=== PATIENT | female | born 1980 | race Caucasian/White ===

== ENCOUNTER 2021-11-16 14:33 | Inpatient (IN) | payer OTHER ==
--- NOTE | 2021-11-16 14:53 | ED ---
General Adult HPI - General Chief complaint: Alcohol Stated complaint: ETOH Time Seen by Provider: 11/16/21 14:42 Source: patient, EMS, RN notes reviewed Mode of arrival: EMS Limitations: no limitations - History of Present Illness Initial comments: Patient is a pleasantly intoxicated 41-year-old female presenting to the emergency department intoxication. Patient was supposed to check in the second heart today. Patient admits to drinking around a fifth of alcohol prior to that because she was nervous. Normally she states she only drinks around a pint a day. Patient denies any other drug use. No new physical complaints. No suicidal thoughts. alcohol level was 400 prior to arrival. - Related Data Allergies Allergy/AdvReac Type Severity Reaction Status Date / Time No Known Allergies Allergy Verified 11/16/21 14:45 Review of Systems ROS Statement: Those systems with pertinent positive or pertinent negative responses have been documented in the HPI. ROS Other: All systems not noted in ROS Statement are negative. Constitutional: Denies: fever ENT: Denies: ear pain Respiratory: Denies: cough Cardiovascular: Denies: chest pain Endocrine: Denies: fatigue Gastrointestinal: Denies: abdominal pain Genitourinary: Denies: urgency Musculoskeletal: Denies: back pain Skin: Denies: rash Neurological: Denies: weakness Past Medical History Past Medical History: No Reported History History of Any Multi-Drug Resistant Organisms: None Reported Additional Past Surgical History / Comment(s): Eptopic in 2008 Past Psychological History: Bipolar, Depression Smoking Status: Current every day smoker Past Alcohol Use History: Abuse, Daily, Heavy General Exam Limitations: no limitations General appearance: alert, in no apparent distress, appears intoxicated Head exam: Present: normocephalic Eye exam: Present: normal appearance Neck exam: Present: normal inspection Respiratory exam: Present: normal lung sounds bilaterally Cardiovascular Exam: Present: regular rate, normal rhythm GI/Abdominal exam: Present: soft. Absent: tenderness Extremities exam: Present: normal inspection Neurological exam: Present: alert Psychiatric exam: Present: normal affect, normal mood Skin exam: Present: normal color Course Vital Signs 11/16/21 14:34 Temperature 98.2 F Pulse Rate 87 Respiratory 18 Rate Blood Pressure 133/78 O2 Sat by Pulse 99 Oximetry Medical Decision Making - Medical Decision Making Case discussed with Dr. Dong who will admit for alcohol intoxication for city call. Breath alcohol level 380 Disposition Clinical Impression: Alcoholic intoxication Disposition: ADMITTED IP TO THIS HOSP Is patient prescribed a controlled substance at d/c from ED?: No Referrals: None,Stated [Primary Care Provider] - 1-2 days Time of Disposition: 15:32
[2021-11-16] MEDS ORDERED: SODIUM CHLORIDE 0.9% 1,000 ML IV STA (15:15)
[2021-11-16] MEDS ORDERED: MULTIVITAMINS, THERA 1 EACH TAB PO STA (15:15)
[2021-11-16] MEDS ORDERED: FOLIC ACID 1 MG TAB PO STA (15:15)
[2021-11-16] MEDS ORDERED: THIAMINE 100 MG/ML 2 ML VIAL IM STA (15:15)
[2021-11-16] MEDS ORDERED: LORazepam 1 MG TAB PO STA (15:15)
[2021-11-16] MEDS ORDERED: NALOXONE 0.4 MG/ML 1 ML VIAL IV PRN (15:32)
[2021-11-16] MEDS ORDERED: LORazepam 2 MG/ML INJ IV PRN (15:33)
[2021-11-16 15:37] LABS: Basophils % (A) 1 %; Eosinophils % (A) 1 %; HCT 41.7 % (34.0-46.0); HGB 13.5 gm/dL (11.4-16.0); Lymphocytes # (A) 1.5 k/uL (1.0-4.8); Lymphocytes % (A) 42 %; MCHC 32.4 g/dL (31.0-37.0); MCV 104.9 fL (80.0-100.0); Macrocytosis Slight; Mean Platelet Volume 7.5; Monocytes # (A) 0.2 k/uL (0-1.0); Monocytes % (A) 5 %; Neutrophils # (A) 1.7 k/uL (1.3-7.7); Neutrophils % (A) 48 %; Platelet Count 204 k/uL (150-450); RBC 3.98 m/uL (3.80-5.40); RDW 13.8 % (11.5-15.5); WBC 3.6 k/uL (3.8-10.6)
[2021-11-16 15:40] LABS: ALT 424 U/L (4-34); African American GFR (CKD) >90 (>60 ml/min/1.73 sqM); Albumin 4.9 g/dL (3.5-5.0); Alkaline Phosphatase 111 U/L (38-126); Anion Gap 12 mmol/L; Blood Urea Nitrogen 4 mg/dL (7-17); Calcium 9.6 mg/dL (8.4-10.2); Carbon Dioxide 29 mmol/L (22-30); Chloride 105 mmol/L (98-107); Glucose 104 mg/dL (74-99); Non-African American GFR(CKD) >90 (>60 ml/min/1.73 sqM); Potassium 3.7 mmol/L (3.5-5.1); Sodium 146 mmol/L (137-145); Total Bilirubin 0.6 mg/dL (0.2-1.3); Total Protein 8.3 g/dL (6.3-8.2)
[2021-11-16 15:51] LABS: AST 692 U/L (14-36); Alcohol 484 mg/dL
[2021-11-16 15:56] LABS: HCG,Quantitative Serum <2.4 mIU/mL
--- NOTE | 2021-11-16 16:52 | P.HPIM ---
History of Present Illness H&P Date: 11/16/21 Chief Complaint: ETOH Intoxication/Withdrawal 41-year-old woman with a history of mood disorder, EtOH abuse presented for alcohol intoxication with impending withdrawal. Patient says that she has been drinking a fifth of liquor daily for the past month and would sincerely like to quit. Today, she presented to [facility] [place], but was acutely intoxicated, therefore, they sent her to the emergency room for medical detox prior to returning. Patient says that she's gone through withdrawal before and has gotten bad to the point where she had hallucinations both visual and auditory, but never any seizures. She knows she is needs help, and is willing to commit to alcohol cessation if she can get through this episode of withdrawal. She denies fevers, chills, nausea, vomiting, chest pain, palpitations, syncope, presyncope, cough, dyspnea, abdominal pain, constipation, diarrhea, dysuria, dyschezia, and a/weakness of extremity is. In the emergency room, patient was afebrile, 133/78, heart rate 87, 99% on room air. CBC shows a white blood cell count of 3.6, MCV is 104.9. Chemistries show sodium of 146. LFTs show elevated AST/ALT 2 692/424. Her serum alcohol level was 484. No imaging to review. All Systems reviewed and pertinent positives and negatives noted in HPI, all other symptoms are negative Gen: awake, alert HEENT: normocephalic, atraumatic, good hearing acuity, moist mucous membranes Resp: good air exchange, breathing comfortably with no accessory muscle use CVS: good distal perfusion x 4, GI: soft, NTTP, ND : no SPT, no CVAT, leonard catheter Notpresent MSK: no pitting edema, no clubbing Neuro: non-focal, moving all extremities Psych: cooperative, euthymic mood Labs and imaging reviewed as above Assessment/plan: ETOH Intoxication with Impending withdrawal ETOH Dependence/Abuse - Admit to observation, telemetry - CIWA protocol + Ativan PRN - Thiamine, MVI, folate - cessation counseling Mood Disorder - resume home mirtazipine Pt is Full Code Past Medical History Past Medical History: No Reported History History of Any Multi-Drug Resistant Organisms: None Reported Additional Past Surgical History / Comment(s): Eptopic in 2008 Past Psychological History: Bipolar, Depression Smoking Status: Current every day smoker Past Alcohol Use History: Abuse, Daily, Heavy Medications and Allergies Home Medications Medication Instructions Recorded Confirmed Type Mirtazapine [Remeron] 7.5 mg PO DAILY PRN 11/16/21 11/16/21 History Allergies Allergy/AdvReac Type Severity Reaction Status Date / Time tomato Allergy Rash/Hives Verified 11/16/21 15:51 all over body Physical Exam Osteopathic Statement: *. No significant issues noted on an osteopathic structural exam other than those noted in the History and Physical/Consult. Vitals: Vital Signs Temp Pulse Resp BP Pulse Ox 11/16/21 14:34 98.2 F 87 18 133/78 99 Intake and Output 11/16/21 11/16/21 11/16/21 06:59 14:59 22:59 Intake Total 100 Balance 100 Intake: IV 100 Invasive Line 1 100 Other: Weight 72.575 kg Results CBC & Chem 7: 11/16/21 15:22 11/16/21 15:22 Labs: Abnormal Lab Results - Last 24 Hours (Table) 11/16/21 11/16/21 Range/Units 15:22 15:22 WBC 3.6 L (3.8-10.6) k/uL MCV 104.9 H (80.0-100.0) fL Sodium 146 H (137-145) mmol/L BUN 4 L (7-17) mg/dL Creatinine 0.49 L (0.52-1.04) mg/dL Glucose 104 H (74-99) mg/dL AST 692 H (14-36) U/L ALT 424 H (4-34) U/L Total Protein 8.3 H (6.3-8.2) g/dL Serum Alcohol 484 H* mg/dL
[2021-11-16] MEDS: LORazepam 2 MG/ML INJ IV PRN ×2 (17:19→22:38)
[2021-11-16] MEDS: THIAMINE 100 MG TAB PO SCH (18:09)
[2021-11-16] MEDS: SODIUM CHLORIDE 0.9% 1,000 ML IV SCH (18:10)
[2021-11-17] MEDS: LORazepam 2 MG/ML INJ IV PRN ×9 (00:31→23:49)
[2021-11-17] MEDS: ACETAMINOPHEN TAB 325 MG TAB PO PRN ×2 (02:53→12:34)
[2021-11-17] MEDS: SODIUM CHLORIDE 0.9% 1,000 ML IV SCH ×2 (05:42→22:34)
[2021-11-17] MEDS: THIAMINE 100 MG TAB PO SCH ×2 (06:18→07:57)
[2021-11-17] MEDS: MULTIVITAMINS, THERA 1 EACH TAB PO SCH (07:57)
[2021-11-17] MEDS: FOLIC ACID 1 MG TAB PO SCH (07:57)
--- NOTE | 2021-11-17 09:58 | P.PN ---
Subjective Progress Note Date: 11/17/21 Hospital course: Patient is a very pleasant 41-year-old female with a past medical history of bipolar disorder, depression, nicotine dependence and alcohol abuse. Patient reports to drinking a pint of vodka per day. She initially presented to [place] for rehab and arrived intoxicated, patient was transferred to the ER to undergo hospital admission for medical detox prior to admission to [place]. Blood alcohol level upon arrival to the emergency department was 484. Patient also had elevated liver enzymes with AST of 692 and ALT of 424. Leukocytosis with WBC count of 3.6 and hypernatremia with sodium of 146. Patient was admitted under our services. Patient was seen and evaluated at bedside this morning. She reports mild nausea and has received 7 mg of Ativan over the past 24 hours. Patient denies currently having any headache, lightheadedness, chest pain, palpitations, shortness of breath, abdominal pain, vomiting, or experiencing any numbness/tingling/weakness in her extremities. Patient's CIWA scores have ranged from 6 to 16 throughout the night. Observation status to inpatient status at this time secondary to elevated CIWA scores and active detox. Physical exam: Vital signs reviewed and stable. General: Nontoxic, no distress and appears stated age. Derm: Skin warm and dry, normal coloration for ethnicity. Head: Atraumatic, normocephalic and symmetric. Eyes: EOMs intact, no lid lag, and anicteric sclera Mouth: no lip lesions, mucus membranes moist Cardiovascular: regular rate and rhythm with normal S1S2, no murmur, positive posterior tibial pulses bilaterally, and cap refill < 2 seconds. Lungs: Respirations even, regular, and unlabored on room air. Lungs CTA bilaterally, no rhonchi, no rales, no wheezing, and no accessory muscle usage. Abdominal: soft, nontender to palpation, no guarding, no appreciable organomegaly Ext: ROM intact. No gross muscle atrophy, no edema, no contractures Neuro: Speech clear, face symmetrical and CN II-XII grossly intact with no noted focal neuro deficits Psych: Alert and oriented to person, place, time, and situation. Appropriate and pleasant affect. Assessment and Plan of Care: Alcohol intoxication with impending withdrawal Hypernatremia Elevated liver enzymes, resulting from daily alcohol abuse -CIWA Protocol with symptom triggered medication management with benzodiazepines. -Continuous IV hydration. -Thiamine 100 mg twice a day -Multivitamin daily -Folate 1 mg daily -Seizure, fall, aspiration, and elopement precautions in place. -Continued close monitoring of electrolytes and replace as needed. -Telemetry monitoring. -Repeat CMP with a.m. labs to monitor liver function Mood disorders including Bipolar disorder, depression, and anxiety -Continue daily medication regimen with mirtazipine CODE STATUS: Full code DVT prophylaxis: Heparin Discussed with: Patient and RN Anticipated discharge date: Likely Sunday pending medical detox Anticipated discharge place: Home, patient being discharged has appointment with [place] for admission on Sunday11/20/19 A total of 36 minutes was spent on the care of this complex patient more than 50% of the time was spent in counseling and care coordination. Objective - Vital Signs Vital signs: Vital Signs Temp 98.2 F 11/17/21 07:54 Pulse 87 11/17/21 07:54 Resp 16 11/17/21 07:54 BP 137/95 11/17/21 07:54 Pulse Ox 96 11/17/21 07:54 Intake & Output 11/16/21 11/17/21 11/17/21 18:59 06:59 18:59 Intake Total 100 120 Balance 100 120 Weight 72.575 kg 72.575 kg Intake: IV 100 Invasive Line 1 100 Oral 120 Other: # Voids 2 - Labs CBC & Chem 7: 11/16/21 15:22 11/16/21 15:22 Labs: Abnormal Lab Results - Last 24 Hours (Table) 11/16/21 11/16/21 Range/Units 15:22 15:22 WBC 3.6 L (3.8-10.6) k/uL MCV 104.9 H (80.0-100.0) fL Sodium 146 H (137-145) mmol/L BUN 4 L (7-17) mg/dL Creatinine 0.49 L (0.52-1.04) mg/dL Glucose 104 H (74-99) mg/dL AST 692 H (14-36) U/L ALT 424 H (4-34) U/L Total Protein 8.3 H (6.3-8.2) g/dL Serum Alcohol 484 H* mg/dL
[2021-11-17] MEDS: HEPARIN SODIUM,PORCINE/PF 5,000 UNIT/0.5 ML SYRINGE SQ SCH ×2 (17:43→23:53)
[2021-11-17 18:04] LABS: Appearance,Urine Clear (Clear); Bilirubin,Urine Negative (Negative); Blood,Urine Moderate (Negative); Color,Urine Light Yellow; Glucose,Urine (UA) Negative (Negative); Ketones,Urine Negative (Negative); Leukocyte Esterase,Urine Negative (Negative); Nitrite,Urine Negative (Negative); Protein,Urine Negative (Negative); Specific Gravity,Urine 1.005 (1.001-1.035); Squamous Epithelial Cell,Urine <1 /hpf (0-4); Urobilinogen,Urine <2.0 mg/dL (<2.0); WBC,Urine <1 /hpf (0-5)
[2021-11-17] MEDS: MIRTAZAPINE 15 MG TAB PO PRN (19:13)
[2021-11-18] MEDS: ACETAMINOPHEN TAB 325 MG TAB PO PRN ×3 (01:45→17:39)
[2021-11-18] MEDS: LORazepam 2 MG/ML INJ IV PRN ×3 (03:45→19:09)
[2021-11-18] MEDS: THIAMINE 100 MG TAB PO SCH ×2 (06:23→17:40)
[2021-11-18 07:19] LABS: HGB 11.5 gm/dL (11.4-16.0); MCH 33.9 pg (25.0-35.0); MCV 106.2 fL (80.0-100.0); Macrocytosis Moderate; Mean Platelet Volume 8.5; Platelet Count 134 k/uL (150-450); RBC 3.39 m/uL (3.80-5.40); RDW 13.8 % (11.5-15.5); WBC 3.3 k/uL (3.8-10.6)
[2021-11-18 07:41] LABS: ALT 330 U/L (4-34); AST 600 U/L (14-36); African American GFR (CKD) >90 (>60 ml/min/1.73 sqM); Albumin 3.6 g/dL (3.5-5.0); Alkaline Phosphatase 77 U/L (38-126); Anion Gap 8 mmol/L; Blood Urea Nitrogen 3 mg/dL (7-17); Calcium 9.2 mg/dL (8.4-10.2); Carbon Dioxide 24 mmol/L (22-30); Chloride 105 mmol/L (98-107); Glucose 85 mg/dL (74-99); Magnesium 1.5 mg/dL (1.6-2.3); Non-African American GFR(CKD) >90 (>60 ml/min/1.73 sqM); Potassium 3.1 mmol/L (3.5-5.1); Sodium 137 mmol/L (137-145); Total Bilirubin 0.9 mg/dL (0.2-1.3); Total Protein 6.4 g/dL (6.3-8.2)
[2021-11-18] MEDS: HEPARIN SODIUM,PORCINE/PF 5,000 UNIT/0.5 ML SYRINGE SQ SCH ×2 (09:28→16:52)
[2021-11-18] MEDS: FOLIC ACID 1 MG TAB PO SCH (11:45)
[2021-11-18] MEDS: MULTIVITAMINS, THERA 1 EACH TAB PO SCH (11:45)
[2021-11-18] MEDS ORDERED: POTASSIUM CHLORIDE ER 20 MEQ TAB.ER PO STA (16:33)
--- NOTE | 2021-11-18 16:38 | P.PN ---
Subjective Progress Note Date: 11/18/21 Hospital course: Patient is a very pleasant 41-year-old female with a past medical history of bipolar disorder, depression, nicotine dependence and alcohol abuse. Patient reports to drinking a pint of vodka per day. She initially presented to [place] for rehab and arrived intoxicated, patient was transferred to the ER to undergo hospital admission for medical detox prior to admission to [place]. Blood alcohol level upon arrival to the emergency department was 484. Patient also had elevated liver enzymes with AST of 692 and ALT of 424. Leukocytosis with WBC count of 3.6 and hypernatremia with sodium of 146. Patient was admitted under our services. 11/18/21 Patient was seen and evaluated at bedside this morning. She has received 10 mg of Ativan per [facility] protocol over the past 24 hours. Upon evaluation patient continues to have noted tremors and states feeling very anxious, however she reports improvement of nausea and denies having any headache, lightheadedness, dizziness, chest pain, palpitations, shortness of breath, abdominal pain, vomiting, numbness/tingling/weakness in her extremities, or experiencing any visual/tactile/auditory hallucinations. Morning labs reviewed revealing resolution of hypernatremia. Hypokalemia with potassium of 3.4 and hypomagnesemia with magnesium of 1.5 both replaced. Physical exam: Vital signs reviewed and stable. General: Nontoxic, no distress and appears stated age. Derm: Skin warm and dry, normal coloration for ethnicity. Head: Atraumatic, normocephalic and symmetric. Eyes: EOMs intact, no lid lag, and anicteric sclera Mouth: no lip lesions, mucus membranes moist Cardiovascular: regular rate and rhythm with normal S1S2, no murmur, positive posterior tibial pulses bilaterally, and cap refill < 2 seconds. Lungs: Respirations even, regular, and unlabored on room air. Lungs CTA bilaterally, no rhonchi, no rales, no wheezing, and no accessory muscle usage. Abdominal: soft, nontender to palpation, no guarding, no appreciable organomegaly Ext: ROM intact. No gross muscle atrophy, no edema, no contractures Neuro: Speech clear, face symmetrical and CN II-XII grossly intact with no noted focal neuro deficits Psych: Alert and oriented to person, place, time, and situation. Appropriate and pleasant affect. Assessment and Plan of Care: Alcohol intoxication with impending withdrawal Hypernatremia, resolved with IV fluid hydration Elevated liver enzymes, resulting from daily alcohol abuse Thrombocytopenia -[facility] Protocol with symptom triggered medication management with benzodiazepines. -Continuous IV hydration. -Thiamine 100 mg twice a day -Multivitamin daily -Folate 1 mg daily -Seizure, fall, aspiration, and elopement precautions in place. -Continued close monitoring of electrolytes and replace as needed. -Telemetry monitoring. -Repeat CMP with a.m. labs to monitor liver function Hypokalemia -Replaced, we will continue to monitor with repeat a.m. labs and replace abnormal electrolyte values as needed. Hypomagnesemia -Replaced, we will continue to monitor with repeat a.m. labs and replace abnormal electrolyte values as needed. Mood disorders including Bipolar disorder, depression, and anxiety -Continue daily medication regimen with mirtazipine CODE STATUS: Full code DVT prophylaxis: Heparin Discussed with: Patient and RN Anticipated discharge date: Likely Sunday pending medical detox Anticipated discharge place: Home, patient being discharged has appointment with [place] for admission on Sunday11/20/19 A total of 35 minutes was spent on the care of this complex patient more than 50% of the time was spent in counseling and care coordination. Objective - Vital Signs Vital signs: Vital Signs Temp 98.3 F 11/18/21 09:22 Pulse 78 11/18/21 09:22 Resp 20 11/18/21 09:22 BP 133/88 11/18/21 09:22 Pulse Ox 95 11/18/21 09:22 Intake & Output 11/17/21 11/18/21 11/18/21 18:59 06:59 18:59 Intake Total 990 1380 Balance 990 1380 Intake: Intake, IV Titration 400 900 Amount Sodium Chloride 0.9% 1, 400 900 000 ml @ 75 mls/hr IV . [id number] JESSICA Rx#:[id number] Oral 590 480 Other: # Voids 2 - Labs CBC & Chem 7: 11/18/21 06:33 11/18/21 06:33 Labs: Abnormal Lab Results - Last 24 Hours (Table) 11/17/21 11/18/21 11/18/21 Range/Units 17:40 06:33 06:33 WBC 3.3 L (3.8-10.6) k/uL RBC 3.39 L (3.80-5.40) m/uL MCV 106.2 H (80.0-100.0) fL Plt Count 134 L (150-450) k/uL Potassium 3.1 L (3.5-5.1) mmol/L BUN 3 L (7-17) mg/dL Creatinine 0.41 L (0.52-1.04) mg/dL Magnesium 1.5 L (1.6-2.3) mg/dL AST 600 H (14-36) U/L ALT 330 H (4-34) U/L Urine Blood Moderate H (Negative)
[2021-11-18] MEDS: SODIUM CHLORIDE 0.9% 1,000 ML IV SCH ×2 (17:40→21:46)
[2021-11-18] MEDS: MAGNESIUM SULFATE-D5W PMX 1 GM in DEXTROSE/WATER 1 100ML.BAG IVPB SCH ×3 (17:40→21:17)
[2021-11-18] MEDS: MIRTAZAPINE 15 MG TAB PO PRN (21:21)
[2021-11-18 23:23] VITALS: RESP 16
[2021-11-19] MEDS ORDERED: ZOLPIDEM 5 MG TAB PO PRN (01:00)
[2021-11-19] MEDS: HEPARIN SODIUM,PORCINE/PF 5,000 UNIT/0.5 ML SYRINGE SQ SCH (01:10)
[2021-11-19 05:47] VITALS: BP 140/89; PULSE 90; TEMP 98.3
[2021-11-19] MEDS: THIAMINE 100 MG TAB PO SCH (06:21)
[2021-11-19] MEDS: FOLIC ACID 1 MG TAB PO SCH (09:14)
[2021-11-19] MEDS: MULTIVITAMINS, THERA 1 EACH TAB PO SCH (09:14)
[2021-11-19] MEDS: MIRTAZAPINE 15 MG TAB PO PRN (09:17)
--- NOTE | 2021-11-19 11:43 | P.DS ---
Providers Date of admission: 11/17/21 08:15 Attending physician: Adalid Velez MD Primary care physician: Stated None Hospital Course: Patient is a very pleasant 41-year-old female with a past medical history of bipolar disorder, depression, nicotine dependence and alcohol abuse. Patient reports to drinking a pint of vodka per day. She initially presented to [place] for rehab and arrived intoxicated, patient was transferred to the ER to undergo hospital admission for medical detox prior to admission to [place]. Blood alcohol level upon arrival to the emergency department was 484. Patient also had elevated liver enzymes with AST of 692 and ALT of 424. Leukocytosis with WBC count of 3.6 and hypernatremia with sodium of 146. Patient was admitted to the hospital and treated for alcohol withdrawal symptoms. Patient improved overall with her symptoms and was not requiring IV Ativan support on day of discharge. She was started on medication Remeron daily at bedtime for her generalized anxiety as well as aiding in her sleep. Patient is recommended to have repeat compensative metabolic performed within 1 week to assess resolution of her elevated LFTs which were likely secondary to her all call intoxication. Patient was in stable medical condition on day of discharge she was discharged [place] facility for ongoing rehabilitation. Patient Condition at Discharge: Stable Plan - Discharge Summary Discharge Rx Participant: Yes New Discharge Prescriptions: Changed Mirtazapine [Remeron] 15 mg PO DAILY PRN 30 Days #30 tab PRN Reason: Anxiety Discharge Medication List Mirtazapine [Remeron] 15 mg PO DAILY PRN 30 Days #30 tab 11/19/21 [Rx] Follow up Appointment(s)/Referral(s): None,Stated [Primary Care Provider] - 1-2 days Patient Instructions/Handouts: Alcohol Intoxication (DC), Abuse of Alcohol (DC) Discharge/Stand Alone Forms: AA Meetings [facility], Who Do I Call?, Community Resources, Outpatient Counseling, Personal Oxygen Tank Filler Discharge Disposition: HOME SELF-CARE
== END 2021-11-19 10:03 | disposition home or self-care (01) | DRG 897 ==
LOC: EC 14:33 → 6NMEDSUR 15:33 → 3SCARD 11-17 04:24 → OBSVTOIN 11-17 08:15
PROVIDERS: ADMIT Internal Medicine; ATTEND Internal Medicine
DX: F10.229 Alcohol dependence with intoxication, unspecified (principal); E87.0 Hyperosmolality and hypernatremia; F10.239 Alcohol dependence with withdrawal, unspecified; F31.9 Bipolar disorder, unspecified; R74.01 Elevation of levels of liver transaminase levels; F41.1 Generalized anxiety disorder; Y90.8 Blood alcohol level of 240 mg/100 ml or more; F17.210 Nicotine dependence, cigarettes, uncomplicated; D72.829 Elevated white blood cell count, unspecified; E83.42 Hypomagnesemia; E87.6 Hypokalemia; Z28.310 Unvaccinated for COVID-19
CPT/HCPCS: 36415; 80053; 80320; 81001; 83735; 84702; 85025; 85027; 96361; 96372; 96374; 99285